=== PATIENT | male | born 1980 | race Caucasian/White ===

== ENCOUNTER 2017-07-21 15:41 | Emergency (ER) | payer OTHER ==
[~2017-07-21] VITALS: Ht 180.3 cm; Wt 94.3 kg
== END 2017-07-21 21:05 | disposition home or self-care (01) ==
LOC: ER 15:41
DX: S92.354A Nondisplaced fracture of fifth metatarsal bone, right foot, initial encounter for closed fracture (principal); X50.3XXA Overexertion from repetitive movements, initial encounter; Y93.89 Activity, other specified; Y92.89 Other specified places as the place of occurrence of the external cause; Y99.8 Other external cause status

== ENCOUNTER 2021-03-17 14:18 | Emergency (ER) | payer OTHER ==
[~2021-03-17] VITALS: Ht 175.3 cm; Wt 99.8 kg
== END 2021-03-17 19:17 | disposition home or self-care (01) ==
LOC: ER 14:18
DX: M54.5 Low back pain (principal); Z03.818 Encounter for observation for suspected exposure to other biological agents ruled out; N20.0 Calculus of kidney